=== PATIENT | male | born 1985 | race Caucasian/White ===

== ENCOUNTER 2024-01-22 10:48 | Outpatient (OUT) | payer BC, SELFPAY ==
--- NOTE | 2024-01-22 11:14 | XR_ITS ---
The [place] [id number] Patient Name: VY RENAE MRN: [id number] date: 1985 Sex: M Assigned Patient Location: [facility] Current Patient Location: [facility] Accession/Order Number: [id number] Exam Date: 01/22/2024 11:05 Report Date: 01/22/2024 12:07 At the request of: AROLDO HINES Procedure: XR lumbar spine 2-3V EXAMINATION: XR lumbar spine 2-3V HISTORY: left sciatic nerve pain M54.32 COMPARISON: No relevant comparison available. FINDINGS: BONES: Normal. No significant spondylosis, scoliosis, fracture, or visible bony lesion. DISC SPACES: Normal. No significant disc height narrowing, subluxation, or endplate abnormality. PARASPINOUS: Negative. No paraspinous abnormality is seen. OTHER: Negative. XR/XR lumbar spine 2-3V IMPRESSION: No acute radiographic abnormality Electronically authenticated by: ROSELIA VÁZQUEZ Date: 01/22/2024 12:07
== END 2024-01-22 10:49 | disposition home or self-care (01) ==
LOC: RAD 10:53
PROVIDERS: PCP Family Medicine; Visit Provider Nurse Practitioner Family
DX: M54.32 Sciatica, left side (principal)
CPT/HCPCS: 72100

== ENCOUNTER 2024-01-29 15:59 | Outpatient (OUT) | payer BC, SELFPAY ==
--- NOTE | 2024-01-29 16:01 | MR_ITS ---
The [address] [address] Patient Name: VY RENAE MRN: [id number] date: 1985 Sex: M Assigned Patient Location: MRI Current Patient Location: Accession/Order Number: [id number] Exam Date: 01/29/2024 16:10 Report Date: 01/30/2024 07:11 At the request of: AROLDO HINES Procedure: MR lumbar spine wo con EXAMINATION: MR lumbar spine wo con HISTORY: left sciatic nerve pain M54.32 COMPARISON: No relevant comparison available. TECHNIQUE: A variety of imaging planes and parameters were utilized for visualization of suspected pathology. FINDINGS: For the purposes of numbering, sagittal T2 image # 8 extends from the T11 vertebral body superiorly to the S2-S3 level inferiorly. PARASPINAL AREA: Normal with no visible mass. BONES: 3 mm retrolisthesis of L5 in relation to S1. No acute fracture or bone edema CORD/CAUDA EQUINA: Normal caliber, contour, and signal intensity. DISC LEVELS: 12-L1: No significant disc/facet abnormality, spinal stenosis, or foraminal stenosis. L1-L2: No significant disc/facet abnormality, spinal stenosis, or foraminal stenosis. L2-L3: No significant disc/facet abnormality, spinal stenosis, or foraminal stenosis. L3-L4: No significant disc/facet abnormality, spinal stenosis, or foraminal stenosis. L4-L5: Posterior broad-based disc herniation the protrusion type extending up to 3.6 mm. This desiccation. No central canal or foraminal stenosis. L5-S1: Moderate disc space narrowing and disc desiccation. Large left lateral and foraminal disc herniation of the extrusion type extending posteriorly up to 7.8 mm best seen on sagittal image #6, axial image #16. This displaces and effaces nerves in the left lateral recess. Bilateral facet osteoarthropathy. No foraminal stenosis MR/MR lumbar spine wo con IMPRESSION: Disc herniations at L4-L5 and L5-S1 as detailed above. Findings are consistent with the patient's left nerve pain Electronically authenticated by: ROSELIA VÁZQUEZ Date: 01/30/2024 07:11
== END 2024-01-29 16:00 | disposition home or self-care (01) ==
LOC: MRI 15:59
PROVIDERS: PCP Family Medicine; Visit Provider Nurse Practitioner Family
DX: M54.32 Sciatica, left side (principal); M51.26 Other intervertebral disc displacement, lumbar region
CPT/HCPCS: 72148